=== PATIENT | female | born 1985 | race Caucasian/White ===

== ENCOUNTER → 2021-10-25 07:53 | Outpatient (CLI) | payer OTHER, SELFPAY ==
--- NOTE | ~2021-10-25 | US_ITS ---
US right upper quadrant DATE: 10/25/2021 08:49 INDICATION: Elevated liver enzymes TECHNIQUE: Real-time imaging of liver, pancreas, gallbladder COMPARISON: None FINDINGS: There are multiple mobile filling defects in the dependent aspect of the gallbladder, with associated shadowing, consistent with cholelithiasis. No gallbladder wall thickening or pericholecyst ic fluid collection. Negative sonographic Yeung's sign. The common bile duct measures 3.1 mm, normal. No hepatic or pancreatic space-occupying mass lesion is detected. Normal hepatopedal portal venous fl ow direction. IMPRESSION: Cholelithiasis Reviewed, dictated and finalized at [facility]. Reviewed, dictated and finalized at [facility]. IMPRESSION: Cholelithiasis
== END ==
PROVIDERS: PCP Family Medicine; Visit Provider Family Medicine
DX: R74.8 Abnormal levels of other serum enzymes (principal); K80.20 Calculus of gallbladder without cholecystitis without obstruction
CPT/HCPCS: 76705